=== PATIENT | male | born 1945 | race Caucasian/White ===

== ENCOUNTER → 2017-06-24 | Outpatient (CLI) | payer OTHER ==
[~2017-06-24] VITALS: Ht 175.3 cm; Wt 92.6 kg
[~2017-06-24] MED LIST: BENZOCAINE 20% ORAL SPR 60 ML CAN OROPHARYNG ONE; LIDOCAINE HCL 2% JELLY 5 ML SYRINGE TOPICAL ONE; LISI-515 PO; TRAM50TA PO
[2017-06-24 07:58] VITALS: BP 141/77; PULSE 67; RESP 16; TEMP 98.2; O2SAT 94
== END ==
LOC: HSDC 06:38
PROVIDERS: ATTEND Internal Medicine Gastroenterology
DX: K21.9 Gastro-esophageal reflux disease without esophagitis (principal); K44.9 Diaphragmatic hernia without obstruction or gangrene
CPT/HCPCS: 91010

== ENCOUNTER 2017-09-16 06:06 | Observation (INO) | payer OTHER ==
[~2017-09-16] VITALS: Ht 175.3 cm; Wt 92.6 kg
[~2017-09-16 06:06] MED LIST changes: +ATOR10TA15 PO; -BENZOCAINE 20% ORAL SPR 60 ML CAN OROPHARYNG ONE; +FENO48TA PO; -LIDOCAINE HCL 2% JELLY 5 ML SYRINGE TOPICAL ONE; +SUCR1TAB PO; +VITA500T83 PO
[2017-09-16] MEDS ORDERED: OMEP20TA93 PO (06:44)
[2017-09-16] MEDS ORDERED: ACETAMINOPHEN 1000 MG/100 ML 100 ML IV SCH (06:45)
[2017-09-16] MEDS ORDERED: POVIDONE IODINE 5% (ANTISEPSIS KIT) 4 APPLICATIONS EACH NARE PRN (06:45)
[2017-09-16] MEDS ORDERED: SODIUM CHLORID 0.9% 500 ML IV PRN (06:45)
[2017-09-16] MEDS ORDERED: METOPROLOL TARTRATE 25 MG TAB PO PRN (06:45)
[2017-09-16] MEDS ORDERED: VANCOMYCIN 1 GM/200 ML PREMIX IV SCH (06:45)
[2017-09-16] MEDS ORDERED: LACTATED RINGER'S 1000 ML IV PRN (06:45)
[2017-09-16] MEDS ORDERED: ceFAZolin 1,000 MG/NS 100 ML IV SCH ×2 (06:45)
[2017-09-16] MEDS ORDERED: CHLORHEXIDINE GLUCONATE 2 % 1 PACK (2 CLOTHS) TOPICAL PRN (06:45)
[2017-09-16] MEDS ORDERED: fentaNYL CITRATE 250 MCG/5 ML AMP ONE (07:06)
[2017-09-16] MEDS ORDERED: BUPIVACAINE/EPINEPHRINE 0.5% PF 30 ML VIAL ONE (07:12)
[2017-09-16 07:14] LABS: AUTOMATED NEUTROPHIL # 3.3 TH/MM3 (1.8-7.7); BASOPHIL # 0.1 TH/MM3 (0-0.2); EOSINOPHIL # 0.3 TH/MM3 (0-0.4); EOSINOPHIL % 4.3 % (0.0-4.0); HEMATOCRIT 46.9 % (39.0-51.0); HEMOGLOBIN 15.5 GM/DL (13.0-17.0); LYMPH % 26.7 % (9.0-44.0); LYMPHOCYTE # 1.6 TH/MM3 (1.0-4.8); MEAN CELL VOLUME 89.4 FL (80.0-100.0); MEAN CORPUSCULAR HEMOGLOBIN 29.5 PG (27.0-34.0); MEAN PLATELET VOLUME 9.7 FL (7.0-11.0); MONO % 11.9 % (0.0-8.0); MONOCYTE # 0.7 TH/MM3 (0-0.9); NEUT % 56.1 % (16.0-70.0); PLATELET COUNT 222 TH/MM3 (150-450); RED BLOOD COUNT 5.24 MIL/MM3 (4.50-5.90); RED CELL DISTRIBUTION WIDTH 13.8 % (11.6-17.2)
[2017-09-16 07:36] LABS: BICARBONATE 24.1 MEQ/L (21.0-32.0); CALCIUM 8.8 MG/DL (8.5-10.1); CREATININE 1.21 MG/DL (0.60-1.30)
[2017-09-16] MEDS ORDERED: DO NOT ADM ANY ANTICOAGULANT DRUGS PRN (11:01)
[2017-09-16] MEDS: D5-NS + KCL 20 MEQ INJ 1,000 ML IV SCH (11:04)
--- NOTE | 2017-09-16 11:04 | HHI.PR ---
cc: Larry Oliveira MD Immediate Post Op Note Procedure Date: Sep 16, 2017 Pre Op Diagnosis: Severe GE reflux with refractory symptoms Post Op Diagnosis: Same Surgeon: Larry Oliveira Ip/Mosaic Technician(s): Luciano Michelle MD Procedure: Laparoscopic Samantha fundoplication Complications: None Specimen(s) removed: None Estimated blood loss: 20 ml Anesthesia: General Drains: None IVF (1500 ml) Patient to: PACU Patient Condition: Good Date/Time of Procedure: SEE SURGICAL CARE RECORD Larry Oliveira MD Sep 16, 2017 11:04
[2017-09-16] MEDS ORDERED: NORC5TAB PO (11:09)
[2017-09-16] MEDS ORDERED: ACETAMINOPHEN/HYDROcodone 325 MG/5 MG TAB PO PRN ×2 (11:15)
[2017-09-16] MEDS ORDERED: ONDANSETRON ODT 4 MG TAB SL PRN (11:15)
[2017-09-16] MEDS ORDERED: NALOXONE HCL 0.4 MG/ML AMP IV PUSH PRN (11:15)
[2017-09-16] MEDS ORDERED: MORPHINE SULFATE 4 MG/ML INJ IV PUSH PRN (11:15)
[2017-09-16] MEDS ORDERED: Post-op Orders (for Pharmacy) XX ONE (11:15)
[2017-09-16] MEDS ORDERED: diphenhydrAMINE HCL 50 MG/ML VIAL IVP PRN (11:15)
[2017-09-16] MEDS ORDERED: KETOROLAC TROMETHAMINE 30 MG/ML (IVP) VIAL IVP PRN (11:15)
--- NOTE | 2017-09-16 11:44 | RADRPT ---
EXAM DATE: 09/16/2017 11:40 AM EDT AGE/SEX: 71 years / Male INDICATIONS: Post laparoscopic Samantha Fundoplication. Evaluate for pneumothorax. CLINICAL DATA: This is the patient's initial encounter. Patient reports that signs and symptoms have been present for 1 day and indicates a pain score of Nonresponsive. MEDICAL/SURGICAL HISTORY: None. None. COMPARISON: No prior exams available for comparison. FINDINGS: A single AP view of the chest demonstrates the lungs to be symmetrically aerated without evidence of mass, infiltrate or effusion. The cardiomediastinal contours are unremarkable. Osseous structures a re intact. CONCLUSION: Under aerated, negative for pneumothorax Minimal subcutaneous edema. Electronically signed by: Bubba Meyer MD 09/16/2017 11:43 AM EDT
[2017-09-16] MEDS ORDERED: PROPOFOL 200 MG/20 ML AMP IV ONE (12:00)
[2017-09-16] MEDS ORDERED: GLYCOPYRROLATE 1 MG/5 ML SYRINGE IV PUSH ONE (12:00)
[2017-09-16] MEDS ORDERED: KETOROLAC TROMETHAMINE 30 MG/ML (IVP) VIAL IV PUSH ONE (12:00)
[2017-09-16] MEDS ORDERED: ROCURONIUM INJ 50 MG/5 ML SYRINGE IV PUSH ONE (12:00)
[2017-09-16] MEDS ORDERED: LIDOCAINE HCL 1% PF 5 ML SYRINGE OTHER ONE (12:00)
[2017-09-16] MEDS ORDERED: ESMOLOL HCL 100 MG/10 ML VIAL IV ONE (12:00)
[2017-09-16] MEDS ORDERED: NEOSTIGMINE 5 MG/5 ML SYRINGE IV PUSH ONE (12:00)
[2017-09-16] MEDS ORDERED: LACTATED RINGER'S 1000 ML INJ 1,000 ML IV ONE (12:00)
[2017-09-16] MEDS ORDERED: ONDANSETRON HCL 4 MG/2 ML VIAL IV ONE (12:00)
[2017-09-16] MEDS ORDERED: DEXAMETHASONE SOD PHOS 4 MG/ML VIAL IV ONE (12:00)
--- NOTE | 2017-09-16 13:45 | EKG ---
Date Performed: 09/16/2017 Time Performed: 06:58:37 PTAGE: 71 years EKG: Sinus rhythm POSSIBLE RIGHT VENTRICULAR CONDUCTION DELAY NONSPECIFIC T-WAVE ABNORMALITY BORDERLINE ECG NO PREVIOUS TRACING DOCTOR: Mahendra Guerrero Interpretating Date/Time 09/16/2017 13:44:16
[2017-09-16] MEDS: PCA - TOTAL MG MORPHINE DELIVERED PER SHIFT SCH ×2 (14:00→22:00)
[2017-09-16 16:00] VITALS: BP 138/64; PULSE 90; RESP 17; TEMP 98; O2SAT 96
[2017-09-16 20:00] VITALS: BP 147/68; PULSE 92; RESP 17; TEMP 97.8; O2SAT 97
[2017-09-17] VITALS: BP 131/62; PULSE 87; RESP 17; TEMP 97; O2SAT 97
[2017-09-17] MEDS: D5-NS + KCL 20 MEQ INJ 1,000 ML IV SCH (01:31)
[2017-09-17 04:00] VITALS: BP 128/62; PULSE 82; RESP 17; TEMP 98.1; O2SAT 97
[2017-09-17] MEDS: PCA - TOTAL MG MORPHINE DELIVERED PER SHIFT SCH (04:51)
[2017-09-17] MEDS ORDERED: ENOXAPARIN SODIUM 40 MG/0.4 ML SYRINGE SQ SCH (11:00)
--- NOTE | 2017-09-17 11:08 | HHI.DS ---
Discharge Summary Admission Date Sep 16, 2017 at 11:04 Discharge Date: Sep 17, 2017 Admitting Diagnosis Brief History 71 year old POD1 laparoscopic Samantha fundoplication CBC/BMP: 09/16/17 0642 09/16/17 0642 Significant Findings Laboratory Tests Test 09/16/17 06:42 Monocytes (%) (Auto) 11.9 % (0.0-8.0) Eosinophils (%) (Auto) 4.3 % (0.0-4.0) Chloride Level 109 MEQ/L (98-107) Estimat Glomerular Filtration Rate 59 ML/MIN (>89) PE at Discharge Alert and awake Cardio: RRR Resp: CTAB Abd: lap sites c/d/i Hospital Course This is a 71 year old POD1 laparoscopic Samantha fundoplication. The patient was able to tolerate a full liquid diet. He will continue this diet for 3 weeks post op. His pain was controlled using oral pain medications. He will follow up in the office next . Pt Condition on Discharge: Good Discharge Disposition: Discharge Home Discharge Instructions DIET: Follow Instructions for: Full Liquid Diet Activities you can perform: See Additionl Instruction Other Activity Instructions: Avoid heavy pushing/pulling/lifting Okay to shower Thursday---- pat incisions dry No bathtubs/swimming pools/hot tubs/beach until office visit Zehra Jones/First Per NICOLE Sep 17, 2017 11:08
--- NOTE | 2017-09-23 01:17 | MP ---
cc: Larry Oliveira MD DATE OF OPERATION: 09/16/2017 DATE OF PROCEDURE: 09/16/2017 PROCEDURE PERFORMED: Laparoscopic Samantha fundoplication. PREOPERATIVE DIAGNOSIS: Severe gastroesophageal reflux with refractory symptoms to medication. POSTOPERATIVE DIAGNOSIS: Severe gastroesophageal reflux with refractory symptoms to medication. ANESTHESIA: Larry Oliveira MD ESTIMATED BLOOD LOSS: 20 mL. FLUIDS: 1500 mL crystalloid. NEW CAR SALESPERSON: Luciano Michelle MD COMPLICATIONS: None. DRAINS: None. SPECIMEN: None. PROCEDURE IN DETAIL: The patient was taken to the operating room and placed on the operating table in the supine position. After an adequate level of general endotracheal anesthesia was achieved, the abdomen was prepped and draped in the usual fashion. Timeout was taken to confirm the correct patient, site, and procedure to be performed. A supraumbilical longitudinal incision was made and carried down through the fascia sharply. The peritoneal cavity was directly visualized. A 12 mm balloon trocar was inserted and the balloon inflated. The abdomen was insufflated. Four 5 mm trocars were then inserted after using a 5 mm 30-degree lens to guide the insertion of each of these. Two of the trocars were placed on the right, with one in the right subcostal region near the falciform ligament and the second in the right mid abdomen, and the left trocars were placed in the left subcostal region. All entered the abdominal cavity under direct vision uneventfully. The right lower trocar was utilized to place a Abeba-Flex retractor, which was used to elevate the lateral segment of the left lobe of the liver. When this had been completed, the Harmonic scalpel was brought in and the gastrohepatic ligament opened. Dissection was carried out, identifying the left soco, and the patient was noted to have a relatively small hiatal hernia. The GE junction was mobilized and a window created behind the esophagus after taking down the short gastrics with the Harmonic scalpel. Dissection was carried out along the greater curve of the stomach up to the GE junction, freeing up the stomach from the diaphragm. When this was accomplished, the javed's hook was able to be passed behind the esophagus, and this was utilized for widening the window. When this was completed, bougie dilators were passed down and a 46 bougie was able to be passed without difficulty. This was left in place after bringing the greater curve of the stomach behind the esophagus. The hiatal hernia was seen to be relatively small, and the diaphragm was then closed with two 0 silk sutures in a [id number] fashion. This allowed for closure of the defect, and the muscle appeared to be relatively robust. It was felt that placement of mesh would be redundant and that good repair was achieved with simple suture closure. The greater curve of the stomach was then brought behind the esophagus and a full wrap Samantha fundoplication was accomplished. Three 2-0 silk sutures were used to accomplish this, with the first, most superior suture through the stomach, esophagus and then the wrap. The second suture was placed through the stomach, a portion of the esophagus at the GE junction, and the wrap as well. The inferiormost third suture was placed across the stomach and the wrap. When this was completed, and with hemostasis assured, the bougie dilator was removed and insufflation was discontinued. The trocars were removed, as was the Abeba-Flex retractor. The laparoscope and supraumbilical port were removed. The fascia was closed at the supraumbilical port with 0 Vicryl suture in a simple interrupted and [id number] fashion. All trocar sites were closed with interrupted buried 4-0 Vicryl suture. All trocar sites were dressed with Steri-Strips. The patient was taken back to the recovery room in stable condition. A gastrostomy tube was not placed, as the hiatal hernia was relatively small, and with the wrap, the patient was felt to not need any anchor for the stomach. He tolerated the procedure well. MD LYLE Sullivan/MELYSSA , 09:03 PM , 01:15 AM
== END 2017-09-17 12:51 | disposition home or self-care (01) ==
LOC: HSDC 06:06 → HSDI 11:04 → N07A 13:59
PROVIDERS: ADMIT Surgery Trauma Surgery; ATTEND Surgery Trauma Surgery
DX: K21.9 Gastro-esophageal reflux disease without esophagitis (principal); I10 Essential (primary) hypertension; N40.0 Benign prostatic hyperplasia without lower urinary tract symptoms; Z87.891 Personal history of nicotine dependence
CPT/HCPCS: 00790; 43280; 71045; 80048; 85025; 93005; 96360; 96361; G0378; J0131; J0690; J1100; J1885; J2405; J2710; J3010; J3370; J3480; J7120